=== PATIENT | female | born 1990 | race Asian ===

== ENCOUNTER 2018-08-03 16:15 | Outpatient (CLI) | payer OTHER ==
[2018-08-03 17:18] LABS: Hemoglobin 13.4 g/dL (12.0-16.0); Mean Corpuscular HGB CONC 33.1 g/dL (32.0-36.0); Mean Corpuscular Volume 84.7 fL (78.0-98.0); Mean Platelet Volume 8.9 fL (7.4-10.4); Platelet Count 273 thou/uL (130-400); RBC Distribution Width 12.7 % (11.5-14.5); Red Blood Cell (RBC) Count 4.78 mill/uL (4.20-5.40); White Blood Cell (WBC) Count 9.3 thou/uL (4.8-10.8)
[2018-08-03 17:35] LABS: BHCG - Serum Negative (NEGATIVE); Pregs Control Background? CLEAR/WHITE (CLR/WHITE); Pregs Control Bar Appear? YES (CONTROL BAR)
== END 2018-08-03 16:16 | disposition home or self-care (01) ==
LOC: LABBT 16:15
PROVIDERS: ATTEND Obstetrics & Gynecology
DX: Z01.812 Encounter for preprocedural laboratory examination (principal); D25.9 Leiomyoma of uterus, unspecified
CPT/HCPCS: 84703; 85027; 86850; 86900; 86901

== ENCOUNTER 2018-08-04 10:33 | Day surgery (SDC) | payer OTHER ==
[2018-08-03 16:54] VITALS: BMI 26.6
[2018-08-04] MEDS ORDERED: Gabapentin 300 MG CAP ONE (10:52)
[2018-08-04] MEDS ORDERED: CEFAZOLIN 2 GM/50 ML BAG ONE (10:52)
[2018-08-04] MEDS ORDERED: Fentanyl 100 MCG/2 ML VIAL ONE ×2 (11:18→13:37)
[2018-08-04] MEDS ORDERED: Midazolam HCl 2 mg/2 ml Vial ONE (11:27)
[2018-08-04] MEDS ORDERED: Famotidine/PF 20 mg/2ml Vial ONE (11:27)
[2018-08-04] MEDS ORDERED: Ferric Subsulfate 8 ML BOT ONE (12:30)
[2018-08-04] MEDS ORDERED: Ondansetron PF 4 MG/2 ML Vial ONE (16:29)
[2018-08-04] MEDS ORDERED: PROPOFOL 200 MG/20 ML VIAL ONE (16:29)
[2018-08-04] MEDS ORDERED: Lidocaine 1% PF 5 ML VIAL ONE (16:29)
[2018-08-04] MEDS ORDERED: Ketorolac Tromethamine 30 MG/ML VIAL ONE (16:29)
--- NOTE | 2018-08-04 16:35 | OP ---
DATE OF PROCEDURE: 08/04/2018 PREOPERATIVE DIAGNOSES: 1. Abnormal uterine bleeding with menorrhagia. 2. Pelvic pain. 3. Submucosal fibroid. POSTOPERATIVE DIAGNOSES: 1. Abnormal uterine bleeding with menorrhagia. 2. Pelvic pain. 3. Submucosal fibroid. PROCEDURE PERFORMED: Hysteroscopic morcellation of submucosal fibroid. COMPLICATIONS: None. ESTIMATED BLOOD LOSS: Approximately 20 mL. IV FLUIDS: 1000 mL. URINARY OUTPUT: 50 mL. HYSTEROSCOPIC FLUID DEFICIT: Normal saline 280 mL. FINDINGS: 1. Normal external genitalia. 2. Normal vaginal and cervical epithelium of 8 cm uterine length. 3. Normal appearing endometrium with bilateral fallopian tube ostia noted. Approximately 1 to 2 cm submucosal fibroid on the right lateral aspect of the uterus with complete removal of intracavitary portion after completion of morcellation. INDICATIONS FOR PROCEDURE: Ms. Austin is a 28-year-old G2, P2 who presented to clinic with complaints of worsening dysmenorrhea and menorrhagia. The patient had a sonogram, which demonstrated two fibroids. She had one submucosal fibroid measuring 1.7 cm and a small anterior fibroid that was intramural in location. The patient was counseled on her treatment options. She does desire , therefore desired conservative surgical therapy rather than medications or hysterectomy. The patient was counseled and elected to have a hysteroscopic morcellation of her submucosal fibroid. DESCRIPTION OF PROCEDURE: The patient was brought to the operating room. She was placed under general anesthesia. The patient was placed in dorsal lithotomy position using Yellofin Stirrups. She was prepped and draped in sterile fashion. An official time-out was performed. A straight catheterization was performed. A single-sided speculum was placed in the vagina, and the anterior aspect of the cervix was grasped using a single-tooth tenaculum. The cervix was sequentially dilated to accommodate an 8 mm hysteroscope. The TruClear hysteroscope 8 mm in size was inserted into the uterine cavity without difficulty. The uterine cavity was evaluated noting the findings above. The 8 mm incisor was then inserted and morcellation was performed of the right lateral submucosal uterine fibroid until the entire intracavitary portion was removed. There is no perforation or damage noted to the myometrium as well as in the intracavity portion. The instruments were then removed. There was an area along the anterior aspect of the cervix where the tenaculum was and applied Monsel for hemostasis. The patient taken out of dorsal lithotomy and placed in supine position. She was extubated without difficulty. There were no complications of the procedure. All counts were correct x2. Job ID: [id number] [id number]
== END 2018-08-04 16:30 | disposition home or self-care (01) ==
LOC: SDC 10:33
PROVIDERS: ATTEND Obstetrics & Gynecology
PROC: 0UB98ZZ Excision of Uterus, Via Natural or Artificial Opening Endoscopic (ICD-10-PCS; principal; 2018-08-04)
DX: D25.0 Submucous leiomyoma of uterus (principal); Z79.84 Long term (current) use of oral hypoglycemic drugs
CPT/HCPCS: 88305; 96374; J0131; J1885; J2001; J2250; J2405; J2704; J3010; S0028